=== PATIENT | female | born 1965 | race Caucasian/White ===

== ENCOUNTER 2017-09-10 17:41 | Emergency (ER) | payer SELFPAY ==
[~2017-09-10] VITALS: Ht 162.6 cm; Wt 83.9 kg
[2017-09-10 18:05] VITALS: Ht 162.6 cm; Wt 83.9 kg
[2017-09-10 19:00] VITALS: BP 126/72
== END 2017-09-10 19:00 | disposition home or self-care (01) ==
LOC: ED 17:41
DX: S76.111A Strain of right quadriceps muscle, fascia and tendon, initial encounter (principal); M54.9 Dorsalgia, unspecified; X58.XXXA Exposure to other specified factors, initial encounter; Y93.89 Activity, other specified; Y92.89 Other specified places as the place of occurrence of the external cause; Y99.8 Other external cause status